=== PATIENT | female | born 1990 | race Caucasian/White ===

== ENCOUNTER → 2020-09-07 | Outpatient (CLI) | payer OTHER | LOC: EROP 18:02 | DX: R05 Cough (principal); Z20.822 Contact with and (suspected) exposure to COVID-19 | CPT/HCPCS: U0002 ==

== ENCOUNTER 2021-02-11 18:27 | Emergency (ER) | payer OTHER | END 2021-02-11 20:45 | disposition home or self-care (01) | LOC: EDSTATUS 18:27 → ER1 18:27 | DX: O99.512 Diseases of the respiratory system complicating pregnancy, second trimester (principal); U07.1 COVID-19; Z23 Encounter for immunization; Z3A.26 26 weeks gestation of pregnancy | CPT/HCPCS: 99282; M0243 ==

== ENCOUNTER → 2021-02-11 | Outpatient (CLI) | payer OTHER | LOC: EROP 15:04 | DX: U07.1 COVID-19 (principal) | CPT/HCPCS: U0002 ==

== ENCOUNTER 2021-05-12 17:11 | Inpatient (IN) | payer BC ==
[~2021-05-12] VITALS: Ht 172.7 cm; Wt 99.8 kg
[2021-05-12 18:22] LABS: HEMOGLOBIN 12.5 gm/dl (12.3-15.3); RED BLOOD COUNT 4.2 M/UL (4.00-5.10); WHITE BLOOD COUNT 9.9 K/UL (4.5-11.0)
[2021-05-12] MEDS ORDERED: PRENATAL VITAM1 EAC8 PO (19:18)
[2021-05-14] MEDS ORDERED: PERCOCET 5/325 T1 EA PO (01:04)
[2021-05-14] MEDS ORDERED: COLACE100 MG PO (01:04)
[2021-05-14] MEDS ORDERED: IBUPROFEN800 MG PO (01:04)
[2021-05-14 01:27] LABS: HEMOGLOBIN 11.4 gm/dl (12.3-15.3); RED BLOOD COUNT 3.81 M/UL (4.00-5.10)
[2021-05-14 01:36] LABS: WHITE BLOOD COUNT 16.9 K/UL (4.5-11.0)
[2021-05-15 08:00] LABS: HEMOGLOBIN 10.4 gm/dl (12.3-15.3)
== END 2021-05-15 15:02 | disposition home or self-care (01) | DRG 807 ==
LOC: GENOP 17:11 → OB 17:48
PROVIDERS: Obstetrics & Gynecology; ADMIT Obstetrics & Gynecology
PROC: 4A1HXCZ Monitoring of Products of Conception, Cardiac Rate, External Approach (ICD-10-PCS; 2021-05-12)
PROC: 3E033VJ Introduction of Other Hormone into Peripheral Vein, Percutaneous Approach (ICD-10-PCS; 2021-05-13)
PROC: 10907ZC Drainage of Amniotic Fluid, Therapeutic from Products of Conception, Via Natural or Artificial Opening (ICD-10-PCS; 2021-05-13)
PROC: 10E0XZZ Delivery of Products of Conception, External Approach (ICD-10-PCS; principal; 2021-05-14)
PROC: 0HQ9XZZ Repair Perineum Skin, External Approach (ICD-10-PCS; 2021-05-14)
PROC: 3E0234Z Introduction of Serum, Toxoid and Vaccine into Muscle, Percutaneous Approach (ICD-10-PCS; 2021-05-14)
DX: O70.0 First degree perineal laceration during delivery (principal); Z37.0 Single live birth; Z3A.39 39 weeks gestation of pregnancy; Z20.822 Contact with and (suspected) exposure to COVID-19; Z23 Encounter for immunization
CPT/HCPCS: 36415; 81001; 82800; 85014; 85018; 85025; 90471; 90715; G0378; J0690; J1580; J2210; J2405; J2590; J7120; U0002